=== PATIENT | female | born 1955 | race Caucasian/White ===

== ENCOUNTER → 2016-06-10 | Outpatient (CLI) | payer MEDICARE, BC ==
--- NOTE | 2016-06-14 06:53 | MM ---
Reason for exam: screening (asymptomatic). Last mammogram was performed 2 years ago. History: Patient is postmenopausal, has history of other cancer at age 50, and is nulliparous. Saline implants in both breasts, 2007. Stereotactic core biopsy, November 20, 2001. Retro-pectoral silicone gel implants in both breasts, 1988. Taking estrogen for 6 years. Physical Findings: A clinical breast exam by your physician is recommended on an annual basis and results should be correlated with mammographic findings. MG Screening Mammo Implant/CAD Bilateral CC and MLO view(s) were taken. Prior study comparison: May 31, 2014, bilateral MG screening mammo w CAD. The breast tissue is heterogeneously dense. This may lower the sensitivity of mammography. No significant changes when compared with prior studies. ASSESSMENT: Benign, BI-RAD 2 RECOMMENDATION: Routine screening mammogram of both breasts in 1 year.
== END ==
LOC: RADMAMWWP 07:32
PROVIDERS: ATTEND Obstetrics & Gynecology
DX: Z12.31 Encounter for screening mammogram for malignant neoplasm of breast (principal)

== ENCOUNTER → 2017-12-13 | Outpatient (CLI) | payer MEDICARE, BC ==
--- NOTE | 2017-12-13 16:20 | MR ---
EXAMINATION TYPE: MR cervical spine wo con DATE OF EXAM: 12/13/2017 COMPARISON: 08/12/2015 HISTORY: Cervicalgia TECHNIQUE: Multiplanar, multisequence images of the cervical spine were acquired. C2-C3: There is disc desiccation. Mild facet arthropathy greater on the left but no foraminal encroac hment. No Canal stenosis. Finding is similar to the prior exam. C3-C4: Mild disc desiccation with more advanced facet arthropathy greater on the left. Uncovertebral joint hypertrophy contributes to mild right foraminal encroachment and moderate left foraminal encroa chment. Minimal central disc bulging with no focal herniation or canal stenosis. Finding is similar t o the prior exam. C4-C5: Disc desiccation with broad-based central disc bulging slightly greater paracentrally to left. Moderate compression of the thecal sac and encroaching along the anterior margin the spinal cord wit h borderline stenosis of the canal. Uncovertebral joint hypertrophy and facet arthropathy greater on the left noted with mild bilateral foraminal encroachment greater on the left. C5-C6: Severe degenerative disc disease. Broad-based central disc protrusion with facet arthropathy a nd uncovertebral joint hypertrophy results in moderate bilateral foraminal encroachment and moderate central stenosis. Disc osteophyte complex extending posteriorly abuts the anterior margin of the spin al cord. C6-C7: Severe degenerative disc disease with uncovertebral joint hypertrophy. There is facet arthropa thy. Moderate bilateral foraminal encroachment similar in appearance the previous exam. Disc bulging slightly greater paracentrally to the left. No Canal stenosis C7-T1: No evidence for degenerative disc disease. No disc bulge/herniation or protrusion. No Canal stenosis. Foramina are patent bilaterally. Degenerative disc disease noted. Incidentally noted is made of a sagittal disc bulge or protrusion at T3-T4. Cervical segments are int act. There is normal alignment. Cervical spinal cord is of normal signal. Craniovertebral junction relationships are within normal limits. Vertebral hemangioma of T1 and C2 noted. IMPRESSION: 1. Multilevel moderate to severe degenerative disc disease with most marked changes at C5-C6. 2. Multilevel disc bulging or protrusion with the most marked findings seen at C5-C6 with moderate ce ntral stenosis and bilateral foraminal encroachment. 3. Multilevel foraminal encroachment. 4. Incidental note made of a sagittal disc bulge or protrusion at T3-T4. Correlate clinically. 5. Findings appear to be similar to the prior exam.
== END | disposition home or self-care (01) ==
LOC: RADMRIMAIN 06:01
PROVIDERS: ATTEND Psychiatry & Neurology Neurology
DX: M48.02 Spinal stenosis, cervical region (principal); M50.222 Other cervical disc displacement at C5-C6 level; M50.322 Other cervical disc degeneration at C5-C6 level; Z88.2 Allergy status to sulfonamides; Z88.8 Allergy status to other drugs, medicaments and biological substances
CPT/HCPCS: 72141

== ENCOUNTER 2018-09-06 10:15 | Day surgery (SDC) | payer MEDICARE, BC ==
[2018-08-30 16:32] VITALS: BMI 25.4
[~2018-09-06 10:15] MED LIST: LACTATED RINGERS 1,000 ML IV SCH; LIDOCAINE 1% 20 ML VIAL (10MG/ML) FOR IV START INTRADERMA PRN; MOXIFLOXACIN HCL 0.5% DROPS 3 ML BTL OP ONE; TETRACAINE 0.5% OPHTH (PF) DROPS 4 ML BTL OP ONE; TIMOLOL 0.5% OPHTH DROPS 5 ML BTL OP ONE
[2018-09-06] MEDS: CYCLOPENTOLATE 1% OPHTH SOLN 2 ML BTL OP ONE ×3 (11:15→11:34)
[2018-09-06] MEDS: PHENYLEPHRINE 2.5% OPHTH DRP 2ML OP NR ×3 (11:24→11:37)
[2018-09-06 11:27] VITALS: TEMP 97.5
[2018-09-06] MEDS ORDERED: ONDANSETRON 4 MG/2 ML VIAL IVP ONE (11:30)
[2018-09-06] MEDS ORDERED: DEXAMETHASONE SOD PHOSPHATE 10 MG/ML 1 ML VIAL IV ONE (11:30)
[2018-09-06] MEDS ORDERED: fentaNYL (PF) 50 MCG/ML 2 ML AMP ONE (12:01)
[2018-09-06] MEDS ORDERED: MIDAZOLAM 2 MG/2 ML VIAL ONE (12:01)
[2018-09-06] MEDS ORDERED: HYALURONATE SODIUM INTRAOCULAR 1 EACH SYRINGE (12MG/ML) INTRAOCULA ONE (12:18)
[2018-09-06] MEDS ORDERED: LIDOCAINE 1% (PF) 10MG/ML VIAL INTRAARTIC ONE (12:18)
[2018-09-06] MEDS ORDERED: BALANCED SALT IRRIG SOLN COMB2 15 ML IRRIG.SOLN INTRAOCULA ONE (12:18)
[2018-09-06] MEDS ORDERED: EPINEPHrine (PF) 0.3 ML in BALANCED SALT IRRIG SOLN COMB2 500 ML IRRIGATION ONE (12:20)
--- NOTE | 2018-09-06 12:35 | P.OP ---
Date of Procedure: 09/06/18 Preoperative Diagnosis: NS & CS Postoperative Diagnosis: same Procedure(s) Performed: PIOL, OD Implants: PCB00 21.50 Anesthesia: MAC Surgeon: Alex Muñoz Estimated Blood Loss (ml): 0 Pathology: none sent Condition: stable Disposition: same day Indications for Procedure: blurry vision Operative Findings: No complications
[2018-09-06 12:44] VITALS: BP 129/56
[2018-09-06 13:05] VITALS: PULSE 55; RESP 16
--- NOTE | 2018-09-07 00:09 | OP ---
OPERATIVE REPORT DATE OF SURGERY: September 06, 2018 SURGEON: Dr. Alex Muñoz. PREOPERATIVE DIAGNOSES: Nuclear sclerosis. Cortical sclerosis. POSTOPERATIVE DIAGNOSES: Nuclear sclerosis. Cortical sclerosis. OPERATION: Clear cornea phacoemulsification of cataract OD (right) eye. ESTIMATED BLOOD LOSS: Zero. SPECIMEN TAKEN: None. NARRATIVE: After obtaining the appropriate consent, the patient was brought to the Operating Room where the patient was placed under cardiac monitoring and prepped and draped in the usual sterile manner. At the 11 o'clock position a 15 degree super sharp blade was used to create a paracentesis followed by instillation of 1% Xylocaine MPF 50:50 mix with BSS into the anterior chamber. This was followed by Amvisc to stabilize the anterior chamber. At the 9 o'clock position a self-sealing corneal flap incision was created using 2.8 mm zulay keratome. A cystatome was used to initiate a continuous tear capsulorrhexis which was completed with the Utrata forceps. A Binkhorst cannula was used to hydrodissect the lens nucleus followed by hydrodelineation. Phacoemulsification of the lens was performed utilizing phaco-chop in 7.66 seconds at 10% power. The remaining cortical material was removed using the irrigation aspiration mode followed by additional 1% Xylocaine MPF into the anterior chamber followed by viscoelastic to stabilize the capsular bag. An HEMANT PCB00 21.5 diopter posterior chamber lens was placed into the capsular bag without difficulty. The remaining viscoelastic material was removed from the anterior chamber with the irrigation/aspiration. Balanced salt solution was used to normalize the intraocular pressure. The incision was checked for watertight integrity. The patient then received two drops of 0.5% timolol followed by two drops Vigamox, was lightly patched and shielded in the usual manner. There were no complications from the procedure. The patient tolerated the procedure well and was returned to recovery in good condition. MMODL / IJN: [id number] / [facility]ITALBrooke
== END 2018-09-06 13:30 | disposition home or self-care (01) ==
LOC: OR 10:15
PROVIDERS: ATTEND Ophthalmology
DX: H25.11 Age-related nuclear cataract, right eye (principal); H25.011 Cortical age-related cataract, right eye; Z88.2 Allergy status to sulfonamides; Z79.890 Hormone replacement therapy; Z79.899 Other long term (current) drug therapy; Z82.3 Family history of stroke; Z84.89 Family history of other specified conditions; Z87.891 Personal history of nicotine dependence

== ENCOUNTER 2018-09-20 08:15 | Day surgery (SDC) | payer MEDICARE, BC ==
[2018-09-18 14:30] VITALS: BMI 25.2
[~2018-09-20 08:15] MED LIST changes: -LIDOCAINE 1% 20 ML VIAL (10MG/ML) FOR IV START INTRADERMA PRN
[2018-09-20] MEDS: PHENYLEPHRINE 2.5% OPHTH DRP 2ML OP NR ×3 (08:58→09:15)
[2018-09-20] MEDS: CYCLOPENTOLATE 1% OPHTH SOLN 2 ML BTL OP ONE ×3 (09:03→09:20)
[2018-09-20 09:18] VITALS: RESP 16; TEMP 97.9
[2018-09-20] MEDS ORDERED: ONDANSETRON 4 MG/2 ML VIAL IVP ONE (09:21)
[2018-09-20] MEDS ORDERED: MIDAZOLAM 2 MG/2 ML VIAL ONE (09:49)
[2018-09-20] MEDS ORDERED: EPINEPHrine (PF) 0.3 ML in BALANCED SALT IRRIG SOLN COMB2 500 ML IRRIGATION ONE (09:51)
[2018-09-20] MEDS ORDERED: LIDOCAINE 1% (PF) 10MG/ML VIAL SQ ONE (10:00)
[2018-09-20] MEDS ORDERED: BALANCED SALT IRRIG SOLN COMB2 15 ML IRRIG.SOLN IRRIGATION ONE (10:00)
[2018-09-20] MEDS ORDERED: HYALURONATE SODIUM INTRAOCULAR 1 EACH SYRINGE (12MG/ML) INTRAOCULA ONE (10:02)
--- NOTE | 2018-09-20 10:18 | P.OP ---
Date of Procedure: 09/20/18 Preoperative Diagnosis: NS & regular astigmatism Postoperative Diagnosis: same Procedure(s) Performed: PIOL, OS Implants: [id number] Anesthesia: MAC Surgeon: Alex Muñoz Estimated Blood Loss (ml): 0 Pathology: none sent Condition: stable Disposition: same day Indications for Procedure: blurry vision Operative Findings: no complications
[2018-09-20 10:51] VITALS: BP 94/61; PULSE 59
--- NOTE | 2018-09-20 22:26 | OP ---
OPERATIVE REPORT DATE OF SURGERY: 20 September 2018. PROCEDURE PERFORMED: Phacoemulsification of cataract and intraocular lens implant of the left eye. PREOPERATIVE DIAGNOSES: Nuclear sclerosis and regular astigmatism. POSTOPERATIVE DIAGNOSES: Nuclear sclerosis and regular astigmatism. SURGEON: Dr. Alex Muñoz. ANESTHESIA: Topical. ESTIMATED BLOOD LOSS: Is none. SPECIMEN: Taken none. NARRATIVE: After obtaining the appropriate consent, the patient was brought to the operating room there. She was asked to sit upright and the axis at 0 and 180 degrees were identified and marked with a gentian kelly marker. She was then laid in the proper supine position under cardiac monitoring, then prepped and draped in the usual sterile manner. She was approached from her left temporal side and using previously acquired corneal topography information, a RepRegen axis marker was sat to an axis of 102 degrees and the limbus of the eye was marked with gentian kelly. At the 5 o'clock position, an MVR blade was used to create a paracentesis port. Through this opening, 1% Xylocaine MPF 50/50 mix of balanced salt solution was injected into the anterior chamber. This was followed by stabilization of the anterior chamber with Amvisc. At the 3 o'clock position, a 2.5 mm keratome was used to create a self-sealing corneal flap incision in Langerman's fashion. Through this opening, a cystotome was introduced to begin a continuous tear capsulorrhexis which was then completed using the Utrata forceps. Hydrodissection and hydrodelineation of the lens was accomplished with balanced salt solution. Phacoemulsification of the lens utilizing phaco chop was accomplished in 7.34 seconds at 8% power. Additional Xylocaine MPF was instilled into the anterior chamber. This was followed by removal of the remaining cortex from in and around the capsular bag as well as careful polishing of the posterior capsule in the capsule vacuum mode. Amvisc was then used to stabilize the capsular bag and a Bausch and Lomb model [id number], spherical equivalent, 24.0 diopter SE x 1.25 diopter cylinder posterior chamber intraocular lens was then introduced into the capsular bag. The remaining viscoelastic was then removed from in and around the intra-ocular lens as well as the anterior chamber. Once the haptics had sufficiently unfolded, the lens was then rotated into the proper position, aligning with 102 degree axis as previously marked on the patient's cornea. The lens was then tamponade against the posterior capsule to ensure the stability and the eye was then brought to normal intraocular pressures through the paracentesis port insuring watertight integrity from the wound entrances. She then received 2 drops of 0.5% timolol followed by 2 drops of moxifloxacin, was then lightly patched and shielded in the usual manner. There were no complications from the procedure. She tolerated the procedure well and was returned to outpatient recovery in good condition. MMMAURICIO / SKY: [id number] / [facility]
== END 2018-09-20 11:04 | disposition home or self-care (01) ==
LOC: OR 08:15
PROVIDERS: ATTEND Ophthalmology
DX: H25.12 Age-related nuclear cataract, left eye (principal); H52.222 Regular astigmatism, left eye; H01.009 Unspecified blepharitis unspecified eye, unspecified eyelid; H02.89 Other specified disorders of eyelid; H35.342 Macular cyst, hole, or pseudohole, left eye; H04.123 Dry eye syndrome of bilateral lacrimal glands; H52.31 Anisometropia; H00.023 Hordeolum internum right eye, unspecified eyelid; H00.026 Hordeolum internum left eye, unspecified eyelid; Z96.1 Presence of intraocular lens; Z90.710 Acquired absence of both cervix and uterus; F17.200 Nicotine dependence, unspecified, uncomplicated; F39 Unspecified mood [affective] disorder; Z83.518 Family history of other specified eye disorder; Z82.3 Family history of stroke; F41.9 Anxiety disorder, unspecified; Z91.048 Other nonmedicinal substance allergy status; Z79.890 Hormone replacement therapy; Z79.899 Other long term (current) drug therapy; Z88.1 Allergy status to other antibiotic agents; Z88.2 Allergy status to sulfonamides; Z88.8 Allergy status to other drugs, medicaments and biological substances
CPT/HCPCS: 66984; V2787; C1780; J2250; J2405; J0171; J2001

== ENCOUNTER → 2018-10-12 | Outpatient (CLI) | payer MEDICARE, BC ==
--- NOTE | 2018-10-13 08:31 | MM ---
Reason for exam: additional evaluation requested from prior study. Last mammogram was performed 2 years and 4 months ago. History: Patient is postmenopausal, has history of other cancer at age 50, and is nulliparous. Saline implants in both breasts, 2007. Stereotactic core biopsy, November 20, 2001. Retro-pectoral silicone gel implants in both breasts, 1988. Taking estrogen for 6 years. MG 3D Diag Mammo Imp W/Cad REY Bilateral CC, MLO, and ID view(s) were taken. Prior study comparison: June 10, 2016, bilateral MG screening mammo implant/CAD. May 31, 2014, bilateral MG screening mammo w CAD. The breast tissue is heterogeneously dense. This may lower the sensitivity of mammography. There is no discrete abnormality. Bilateral subpectoral implants redemonstrated. These results were verbally communicated with the patient and result sheet given to the patient on 10/12/18. ASSESSMENT: Benign, BI-RAD 2 RECOMMENDATION: Routine screening mammogram of both breasts in 1 year.
== END | disposition home or self-care (01) ==
LOC: RADMAMWWP 14:14
PROVIDERS: ATTEND Surgery
DX: R92.8 Other abnormal and inconclusive findings on diagnostic imaging of breast (principal); Z98.82 Breast implant status
CPT/HCPCS: 77066; G0279; 77062

== ENCOUNTER → 2018-10-12 | Outpatient (CLI) | payer MEDICARE, BC ==
[2018-10-12 13:26] VITALS: BP 104/70; PULSE 72; RESP 16; TEMP 97.7; BMI 25.2
--- NOTE | 2018-10-12 14:05 | P.GSHP ---
History of Present Illness H&P Date: 10/12/18 Chief Complaint: implants, and they have changed The patient is a 63 year old white female with a complaint of her breast changing after she had bilateral implants. She has had 2 sets of implants. The first set of implants were placed when she was approximately 30 years old and lasted for approximately 20 years. These were silicone implants. She was noted to have a leak and therefore the implants were removed. The leak was found secondary to the fact that she had a CAT scan to evaluate for bone cancer. This was diagnosed in 2005. She had a bone cancer in her distal right radius and ulna and had the ulna removed. 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 This was treated with chemotherapy and surgery. She did not have any radiation. She had implants replaced in 2007. Her last bilateral mammogram was in 2016 and this was benign BIRADS 2. AT this time she is complaining of the implants shifting. She also complains of pain on the bilateral lateral aspect of each breast. This occurs when she touches them. She is concerned that the displacement of the implants occurred at the time of her mammogram. She does not feel any lumps or masses otherwise in her breast. Patient drinks caffeine 2 cups/day, smoker trying to stop now, she is exposed to second hand smoke, chocolate eats 2 times/ week. Family History: 1. patient bone cancer Hormonal History: menarche: 13 G1 at 15, no other pregnancies menopause: hysterectomy at 40 took both ovaries BCP: 10 years, IUD 5 years hormones: estrotest 1/2 strength for 23 years Past surgical history: 1. Right radius and ulna for bone cancer 2. Hysterectomy, bilateral oophrectomy 3. tonsil adn adenoid 4. Bilateral breast implants placed removed and replaced now has saline implants 5. left hand (carpel tunnel, thumb release, bone spurs removed) Medical history: history of right lower arm bone cancer Creatinine level creeping up/following with Dr. Bryson Social History: smoke: parents 2/PPD, started at 14 now trying to stop alcohol: occasional drugs: none - Constitutional Constitutional: Reports sweats - EENT Comment: cataract surgery Eyes: denies blurred vision, denies pain Ears: deny: decreased hearing, tinnitus Ears, nose, mouth and throat: Denies headache, Denies sore throat - Breasts Breasts: bilateral: as per HPI - Cardiovascular Cardiovascular: Denies chest pain, Denies shortness of breath - Respiratory Comment: smoker Respiratory: Reports cough - Gastrointestinal Gastrointestinal: Denies abdominal pain, Denies diarrhea, Denies nausea, Denies vomiting - Genitourinary (Female) Genitourinary: Denies dysuria, Denies hematuria - Menstruation Menstruation: Reports post hysterectomy - Musculoskeletal Comment: right arm bone cancer - Integumentary Comment: sensitive skin, follows with dermatology Integumentary: Denies pruritus, Denies rash - Neurological Comment: right hand loss of extensor function - Psychiatric Psychiatric: Reports anxiety, Reports depression - Endocrine Endocrine: Denies fatigue, Denies weight change - Allergic/Immunologic Allergic/Immunologic: Reports as per HPI Past Medical History Past Medical History: Cancer, Eye Disorder, Musculoskeletal Disorder Additional Past Medical History / Comment(s): HX OSTEOSARCOMA RT ARM 2005, HAS PLATE RT ELBOW TO KNUCKLES. DEG DISC DX, ALLERGIES. BLOOD PRESSURE LOW NORMAL. REY CATARACTS., pt states taking antibiotic for recent cough-dr sher aware History of Any Multi-Drug Resistant Organisms: None Reported Past Surgical History: Breast Surgery, Hysterectomy, Orthopedic Surgery, Tonsillectomy Additional Past Surgical History / Comment(s): RT ARM TUMOR REMOVED WITH BONE GRAFT FROM LEFT LEG, METAL RATNA, STATES NO RIGHT ULNA, LT FOOT BONE SPURS, BREAST IMPLANTS X2. LT CTR. SINUS SURG. Past Anesthesia/Blood Transfusion Reactions: No Reported Reaction, Motion Sickness Past Psychological History: Anxiety, Depression, Panic Disorder Additional Psychological History / Comment(s): HX PANIC ATTACK. R/T HEALTH/CANCER. Smoking Status: Current some day smoker Past Alcohol Use History: Rare Additional Past Alcohol Use History / Comment(s): SMOKING 35 YEARS OLD, ON/OFF, UP TO 2PPD - TRYING TO QUIT, NOW FEW CIGARETTES PER DAY Past Drug Use History: None Reported - Past Family History Mother Family Medical History: No Reported History Medications and Allergies Home Medications Medication Instructions Recorded Confirmed Type Citalopram Hydrobromide [CeleXA] 20 mg PO DAILY 11/07/13 10/12/18 History Estrogen,Christie/Me-Testosterone 1 tab PO DAILY 11/07/13 10/12/18 History [Estrogen-Methyltestos F.s. Tab] Calcium Carbonate/Vitamin D3 1 each PO BID 08/30/18 10/12/18 History [Caltrate 600 Plus D3 Tablet] L.acidoph,Paracasei, B.lactis 1 each PO DAILY 08/30/18 10/12/18 History [Probiotic] Loratadine-Pseudoeph 5-120 mg 1 each PO DAILY 08/30/18 10/12/18 History [Claritin-D 12 HR] buPROPion SR [Wellbutrin Sr] 150 mg PO DAILY 08/30/18 10/12/18 History clonazePAM [KlonoPIN] 0.5 mg PO BID PRN 08/30/18 10/12/18 History Nyquil 1 tab PO DAILY PRN 09/18/18 10/12/18 History Allergies Allergy/AdvReac Type Severity Reaction Status Date / Time azithromycin Allergy Diarrhea Verified 10/12/18 13:29 [From Zithromax Z-Kip] prochlorperazine edisylate Allergy Confusion Verified 10/12/18 13:29 [From Compazine] prochlorperazine maleate Allergy Confusion Verified 10/12/18 13:29 [From Compazine] Sulfa (Sulfonamide Allergy Rash/Hives Verified 10/12/18 13:29 Antibiotics) as child adhesive AdvReac Rash/Hives Verified 10/12/18 13:29 Surgical - Exam Vital Signs Temp Pulse Resp BP Pulse Ox 97.7 F 72 16 104/70 99 10/12/18 13:15 10/12/18 13:15 10/12/18 13:15 10/12/18 13:15 10/12/18 13:15 MA 25.2 - General well developed, well nourished, no distress - Eyes normal ocular movement - ENT no hearing loss, no congestion - Neck no masses, trachea midline - Respiratory normal respiratory effort, clear to auscultation - Cardiovascular Rhythm: regular Heart Sounds: normal: S1, S2 - Abdomen Abdomen: soft, non tender, no guarding, no rigid, no rebound - Integumentary normal turgor - Neurologic no disoriented, no combative - Musculoskeletal Well-healed scar right lower arm related to surgery for bone cancer Right hand contracted normal gait, normal posture - Psychiatric oriented to time, oriented to person, oriented to place, speech is normal, memory intact Breast examination: Right breast: Multi-positional exam well-healed scar from placement of implant no dominant masses or nodules of concern Right axilla: No adenopathy of concern There is tenderness to palpation in the lateral aspect of the breast patient describes as a 1 or 2 out of 10 and only with palpation there is no discrete mass at this site Left breast: Multi-positional exam well-healed scar from placement of implant no dominant masses or nodules of concern Left axilla: No adenopathy of concern Results No recent radiographic studies done Assessment and Plan Assessment: Impression: 1. Bilateral fibrocystic breast changes 2. Bilateral breast implants 3. Bilateral mastodynia which is worse with palpation 4. Patient is stopping smoking prior nicotine dependence 5. Family history of cancer 6. Anxiety/depression 7. Prior history of right arm cancer 8. Patient does drink caffeine, she is exposed to secondhand smoke, she eats chocolate regularly 9. Patient presently on estrogen has been on this for over 20 years The patient's mastodynia is most likely multifactorial. May be related to the hormones as well as caffeine nicotine and theophylline. We will discuss this. Additionally it is necessary for the patient to have imaging of her breasts. I strongly recommended the bilateral mammograms be performed. Plan: 1. Bilateral mammograms 2. Abstain from smoking and secondhand smoke exposure as possible, stop caffeine exposure, and chocolate patient understands that these things may help with the breast pain reduction. 3. Follow-up after mammograms performed. Cc: Dr. Bryson, DR. Kaur
== END | disposition home or self-care (01) ==
LOC: WWCWWP 12:43
PROVIDERS: ATTEND Surgery
DX: Z53.9 Procedure and treatment not carried out, unspecified reason (principal)

== ENCOUNTER → 2018-11-09 | Outpatient (CLI) | payer MEDICARE, BC ==
--- NOTE | 2018-11-09 13:07 | US ---
EXAMINATION TYPE: US kidneys/renal and bladder DATE OF EXAM: 11/09/2018 COMPARISON: NONE CLINICAL HISTORY: N18.9 Chronic kidney disease. abn labs, no pain EXAM MEASUREMENTS: Right Kidney: 8.8 x 4.0 x 4.2 cm Left Kidney: 8.6 x 4.2 x 4.7 cm Right Kidney: appears small in size Left Kidney: appears small in size Bladder: distended, wnl Bilateral Jets not seen There is no evidence for hydronephrosis at this point in time. No nephrolithiasis is seen. No yogi s are identified. The urinary bladder is anechoic. Bilateral ureteral jets are seen. IMPRESSION: Small size of the kidneys is noted however there is no cortical renal thinning. No hydronephrosis or nephrolithiasis. No suspicious solid renal mass.
== END | disposition home or self-care (01) ==
LOC: RADUSWWP 11:39
PROVIDERS: ATTEND Internal Medicine Geriatric Medicine
DX: N18.9 Chronic kidney disease, unspecified (principal)
CPT/HCPCS: 76770

== ENCOUNTER → 2019-05-17 | Outpatient (CLI) | payer MEDICARE, BC ==
--- NOTE | 2019-05-17 16:22 | BD ---
EXAMINATION TYPE: Axial Bone Density DATE OF EXAM: 05/17/2019 COMPARISON: NONE CLINICAL HISTORY: 63-year-old female osteoporosis Height: 64 Weight: 158.0 FRAX RISK QUESTIONS: Alcohol (3 or more units per day): no Family History (Parent hip fracture): no Glucocorticoids (More than 3mos): no (Ex: prednisone, prednisolone, methylprednisolone, dexamethasone, and hydrocortisone). History of Fracture in Adulthood: yes Secondary Osteoporosis: 1. Type 1 Diabetes: no 2. Hyperthyroidism: no 3. Menopause before 45: yes 4. Malnutrition: no 5. Chronic liver disease: no Rheumatoid Arthritis: no Current Tobacco Use: no RISK FACTORS HISTORY OF: History of Wrist Fracture: right wrist/ bone cancer When: 2005 Surgery to Spine/Hip(right/left)/Wrist (right/left): right hip bone removed for arm surgery When: 2013 Family History of Osteoporosis: yes Active: yes Diet low in dairy products/other sources of calcium: no Postmenopausal woman: hysterectomy age 40 Take estrogen and/or progesterone medications: yes How long: since age 40 Lost more than 2 inches in height since high school: no MEDICATIONS: hormones, Wellbutrin ,allergy meds, zoloft Additional History: EXAM MEASUREMENTS: Bone mineral densitometry was performed using the [employer] System. Bone mineral density as measured about the Lumbar spine is: ----- L1-L4(G/cm2): 1.040 T Score Values are as follows: ----- L2: -1.2 ----- L3: -0.7 ----- L4: -1.2 ----- L1-L4: -1.2 Bone mineral density has: decreased -0.2 % since study of: 12.09.2005 Bone mineral density about the L hip (g/cm2): 0.891 T Score values are as follows: -----L Neck: -1.1 -----L Total: -1.0 Bone mineral density has: decreased -1.3 % since study of: 12.09.2005 IMPRESSION: Osteopenia (T Score between -2.5 and -1). There is slightly increased risk of fracture and the patient may be considered for treatment. Re-Screen 2-5 years. NOTE: T-SCORE=SD OF THE YOUNG ADULT MEAN.
== END | disposition home or self-care (01) ==
LOC: RADBDWWP 10:18
PROVIDERS: ATTEND Internal Medicine Geriatric Medicine
DX: M85.80 Other specified disorders of bone density and structure, unspecified site (principal)
CPT/HCPCS: 77080